=== PATIENT | female | born 2000 | race Caucasian/White ===

== ENCOUNTER 2020-02-15 10:00 | Inpatient (IN) ==
[2020-02-15] MEDS ORDERED: Ondansetron 4 MG/2 ML VIAL IVP PRN ×2 (10:28→11:05)
[2020-02-15] MEDS ORDERED: Naloxone 0.4 MG/ML INJ IVP PRN ×2 (10:28→11:05)
[2020-02-15] MEDS ORDERED: Metoclopramide 10 MG/2 ML VIAL IVP PRN ×2 (10:28→11:05)
[2020-02-15] MEDS ORDERED: Famotidine 20 MG/2 ML VIAL IVP PRN ×2 (10:28→11:05)
[2020-02-15] MEDS ORDERED: Azithromycin 500 MG in 0.9 % Sodium Chloride 250 ML IVPB ONE (10:28)
[2020-02-15] MEDS ORDERED: Oxytocin 20 units/ LR 1000 mL 20 UNIT/1,000 ML BAG IVC SCH ×3 (10:30→21:19)
[2020-02-15] MEDS ORDERED: Ringers Solution, Lactated 1,000 ML IVC SCH (11:15)
[2020-02-15 11:19] LABS: Basophils % 0.2 %; Eosinophils # 0.1 K/mcL (0.0-0.6); Eosinophils % 0.9 %; Hematocrit 29.6 % (35.3-44.9); Hemoglobin 8.9 g/dL (11.5-15.4); Immature Granulocytes % 0.9 % (0-4); Lymphocytes # 2.2 K/mcL (0.6-4.6); Lymphocytes % 21.8 %; Mean Corpuscular HGB Conc 30.1 g/dL (31.6-35.5); Mean Corpuscular Hemoglobin 27.1 pg (28.0-33.3); Mean Corpuscular Volume 90.2 fL (83.0-100.0); Mean Platelet Volume 9.8 fL (9.4-12.4); Monocytes # 0.5 K/mcL (0.0-1.3); Neutrophils # 7.3 K/mcL (1.6-8.9); Platelet Count 307 K/mcL (140-400); Red Blood Count 3.28 M/mcL (3.82-4.97); Red Cell Distribution Width 16.5 % (11.5-14.5); Segmented Neutrophils % 71.2 %; White Blood Count 10.2 K/mcL (4.3-11.1)
[2020-02-15 11:24] LABS: Amphetamine Screen,Urine Negative ng/mL (Cutoff=1000); Barbiturate Screen,Urine Negative ng/mL (Cutoff=200); Benzodiazepines Screen,Urine Negative ng/mL (Cutoff=200); Cannabinoid Screen,Urine Negative ng/mL (Cutoff = 50); Cocaine Screen,Urine Negative ng/mL (Cutoff= 300); Opiate Screen,Urine Negative ng/mL (Cutoff=300); Phencyclidine Screen,Urine Negative ng/mL (Cutoff=25)
[2020-02-15] MEDS: Ringers Solution, Lactated 1,000 ML IVC SCH ×2 (12:00→14:57)
[2020-02-15] MEDS ORDERED: EPHEDrine 50 MG/ML VIAL IVP PRN (12:52)
[2020-02-15] MEDS ORDERED: *HR* FentaNYL (PF) 100 MCG/2 ML VIAL EP ONE (12:52)
[2020-02-15] MEDS ORDERED: Bupivacaine-MPF 0.25% 10 ML VIAL EP ONE (12:52)
[2020-02-15] MEDS ORDERED: Epidural Premix (fent/bupiv) 110 ML EP SCH (13:00)
[2020-02-15] MEDS ORDERED: *HR* FentaNYL (PF) 100 MCG/2 ML VIAL ONE (13:32)
[2020-02-15] MEDS ORDERED: Bupivacaine-MPF 0.25% 10 ML VIAL ONE (13:32)
[2020-02-15] MEDS ORDERED: Fluconazole 150 MG TABLET PO SCH (14:38)
[2020-02-15] MEDS ORDERED: Benzocaine/Menthol 56 GM AEROSOL SPRAY TP PRN (21:19)
[2020-02-15] MEDS ORDERED: Measles/Mumps/Rubella Vacc 0.5 ML VIAL SQ PRN (21:19)
[2020-02-15] MEDS ORDERED: Oxytocin 20 units/ LR 1000 mL 20 UNIT/1,000 ML BAG IVC ONE (21:19)
[2020-02-15] MEDS ORDERED: Rho Immune Globulin 1,500 UNIT SYRINGE IM PRN (21:19)
[2020-02-15] MEDS: Acetaminophen 325 MG TABLET PO PRN (23:26)
[2020-02-16 08:26] LABS: Basophils % 0.2 %; Eosinophils # 0.1 K/mcL (0.0-0.6); Eosinophils % 0.8 %; Immature Granulocytes % 0.5 % (0-4); Lymphocytes % 16.7 %; Mean Corpuscular Hemoglobin 27.1 pg (28.0-33.3); Mean Corpuscular Volume 90.4 fL (83.0-100.0); Mean Platelet Volume 9.5 fL (9.4-12.4); Monocytes # 0.7 K/mcL (0.0-1.3); Monocytes % 5.5 %; Neutrophils # 9.2 K/mcL (1.6-8.9); Platelet Count 246 K/mcL (140-400); Red Blood Count 3.32 M/mcL (3.82-4.97); Red Cell Distribution Width 16.8 % (11.5-14.5); Segmented Neutrophils % 76.3 %; White Blood Count 12.1 K/mcL (4.3-11.1)
[2020-02-16] MEDS: Acetaminophen 325 MG TABLET PO PRN (08:26)
[2020-02-16] MEDS ORDERED: Fluconazole 150 MG TABLET PO SCH (09:00)
[2020-02-16] MEDS ORDERED: Prenatal Vit/FA 1 EACH TABLET PO SCH (09:00)
[2020-02-16] MEDS ORDERED: Ibuprofen 600 MG TABLET PO ONE (13:20)
[2020-02-16 16:07] VITALS: BP 110/68
== END 2020-02-16 19:35 | disposition home or self-care (01) | DRG 560 ==
LOC: 1NENULAB 10:13 → 1NENUOBS 21:04
PROVIDERS: ADMIT Student in an Organized Health Care Education/Training Program; ATTEND Student in an Organized Health Care Education/Training Program